=== PATIENT | female | born 1990 | race Caucasian/White ===

== ENCOUNTER 2017-02-14 12:34 | Emergency (ER) | payer OTHER ==
[~2017-02-14] VITALS: Ht 162.6 cm; Wt 85.6 kg
[~2017-02-14 12:34] MED LIST: COLACE100 MG PO; MOTRIN800 MG PO; ORTHO EVRA PA1 PATCH TP; PERCOCET 5/31 TABLET PO; PRENATAL TABLE1 EAC3 PO; ULTRAM50 MG PO; VALACYCLOVIR500 MG PO
[2017-02-14] MEDS ORDERED: ADDERALL30 MG PO (13:12)
[2017-02-14 13:44] LABS: ADD MIUA? YES; BILIRUBIN NEGATIVE; BLOOD NEGATIVE; COLOR YELLOW ((YELLOW)); GLUCOSE (STRIP) NEGATIVE; KETONES NEGATIVE; LEUKOCYTES MODERATE; NITRITE NEGATIVE; PROTEIN (STRIP) NEGATIVE; UROBILINOGEN 0.2 MG/DL (0.2-1.0)
[2017-02-14 14:00] LABS: BACTERIA RARE /HPF; EPITHELIAL CELLS 2+ /HPF; MUCUS TRACE /LPF; RED BLOOD CELLS 0-5 /HPF (0-5); WHITE BLOOD CELLS 20-30 /HPF (0-5)
[2017-02-14] MEDS ORDERED: PREDNISONE20 MG PO (14:09)
[2017-02-14] MEDS ORDERED: MOTRIN800 MG PO (14:09)
[2017-02-14] MEDS ORDERED: FLEXERIL10 MG PO (14:09)
[2017-02-14 14:24] VITALS: BP 113/80
== END 2017-02-14 14:25 | disposition home or self-care (01) ==
LOC: EME 12:34
PROVIDERS: Nurse Practitioner Family
DX: S13.4XXA Sprain of ligaments of cervical spine, initial encounter (principal); S33.5XXA Sprain of ligaments of lumbar spine, initial encounter; F17.200 Nicotine dependence, unspecified, uncomplicated; V89.9XXA Person injured in unspecified vehicle accident, initial encounter; Z88.1 Allergy status to other antibiotic agents; Z88.2 Allergy status to sulfonamides
CPT/HCPCS: 72040; 72100; 81003; 84702; 99281; 99284; J1885; J7512